=== PATIENT | female | born 1970 | race Caucasian/White ===

== ENCOUNTER 2017-01-16 10:56 | Emergency (ER) | payer OTHER ==
[~2017-01-16] VITALS: Ht 154.9 cm; Wt 78.0 kg
[~2017-01-16 10:56] MED LIST: LASIX 40 MG TAB40 MG PO; OMEPRAZOLE20 MG PO; TESSALON PER100 MG PO; TRAMADOL HYDROC50 MG PO; ZPAK PO
[2017-01-16] MEDS ORDERED: OMEPRAZOLE10 MG PO (11:09)
[2017-01-16 11:34] LABS: HEMATOCRIT 40.1 % (37.0-47.0); HEMOGLOBIN 13.9 g/dl (12.0-16.0); IMMATURE GRANULOCYTES 0.3 % (0.0-1.0); MEAN CELL VOLUME 95.7 fL CALC (80.0-100.0); MEAN CORPUSCULAR HGB 33.2 pG CALC (26.0-32.0); MEAN CORPUSCULAR HGB CONC 34.7 g/L CALC (32.0-36.0); NEUT# 4.22 thou/uL (2.00-7.15); RED BLOOD COUNT 4.19 mill/uL (4.20-5.60); RED CELL DISTRI WIDTH 12.2 % (11.5-15.5)
[2017-01-16 11:53] LABS: ALBUMIN 4.7 g/dL (3.2-5.0); ALKALINE PHOSPHATASE 126 u/l (38-126); ANION GAP 20 (6-22 (CALC)); BILIRUBIN, TOTAL 0.3 mg/dL (0.0-1.4); BUN 8 mg/dL (7-17); BUN/CREATININE RATIO 12 (12-20 (CALC)); CALCIUM 10.4 mg/dL (8.4-10.2); CARBON DIOXIDE 24 mmol/l (22-30); CHLORIDE 105 mmol/l (95-108); CREATININE 0.6 mg/dL (0.5-1.0); ETHYL ALCOHOL 25 mg/dl (0-30); GFR > 60 ML/MIN (>=60 (CALC)); GFR FOR AFR.AMER. > 60 ML/MIN (>=60 (CALC)); GLUCOSE 97 mg/dL (65-105); POTASSIUM 4.3 mmol/l (3.5-5.1); SGOT/AST 56 u/l (14-36); SGPT/ALT 56 u/l (9-52); SODIUM 144 mmol/l (137-146); TOTAL PROTEIN 8.5 g/dL (6.3-8.2)
[2017-01-16 12:05] LABS: MYOGLOBIN 37 ng/mL (0 - 62)
[2017-01-16] MEDS ORDERED: LOPRESSOR25 M1 PO (13:01)
[2017-01-16] MEDS ORDERED: MEDDOSEPAK PO (13:01)
[2017-01-16] MEDS ORDERED: ZPAK PO (13:01)
[2017-01-16 13:58] VITALS: BP 148/74
== END 2017-01-16 14:00 | disposition home or self-care (01) | DRG 203 ==
LOC: ED 10:56
PROVIDERS: Emergency Medicine
DX: J40 Bronchitis, not specified as acute or chronic (principal); I10 Essential (primary) hypertension; F17.210 Nicotine dependence, cigarettes, uncomplicated; F10.10 Alcohol abuse, uncomplicated

== ENCOUNTER 2018-10-27 11:32 | Emergency (ER) | payer OTHER ==
[~2018-10-27] VITALS: Ht 154.9 cm; Wt 79.1 kg
[~2018-10-27 11:32] MED LIST changes: +LOPRESSOR25 M1 PO; +MEDDOSEPAK PO; +OMEPRAZOLE10 MG PO
[2018-10-27 11:48] VITALS: BP 121/78
[2018-10-27] MEDS ORDERED: LIPITOR20 M1 PO (11:54)
[2018-10-27] MEDS ORDERED: LISINOP/HCTZ1 TA2 PO (11:55)
[2018-10-27] MEDS ORDERED: PAXIL40 MG PO (11:55)
== END 2018-10-27 12:20 | disposition home or self-care (01) | DRG 605 ==
LOC: ED 11:32
DX: S80.01XA Contusion of right knee, initial encounter (principal); I10 Essential (primary) hypertension; E78.5 Hyperlipidemia, unspecified; F17.200 Nicotine dependence, unspecified, uncomplicated; W01.0XXA Fall on same level from slipping, tripping and stumbling without subsequent striking against object, initial encounter

== ENCOUNTER 2019-12-31 | Emergency (ER) | payer OTHER ==
[~2019-12-31] MED LIST changes: +LIPITOR20 M1 PO; +LISINOP/HCTZ1 TA2 PO; +PAXIL40 MG PO
[2019-12-31] MEDS ORDERED: LOSARTAN POTASS50 MG PO (11:57)
[2019-12-31] MEDS ORDERED: BUSPIRONE5 MG PO (11:57)
== END 2019-12-31 15:21 | disposition home or self-care (01) | DRG 556 ==
DX: M79.605 Pain in left leg (principal); I10 Essential (primary) hypertension; F17.210 Nicotine dependence, cigarettes, uncomplicated; Z98.890 Other specified postprocedural states

== ENCOUNTER 2020-11-17 10:30 | Emergency (ER) | payer OTHER ==
[~2020-11-17] VITALS: Ht 157.5 cm; Wt 77.3 kg
[~2020-11-17 10:30] MED LIST changes: +BUSPIRONE5 MG PO; +LOSARTAN POTASS50 MG PO
[2020-11-17 11:30] LABS: HEMATOCRIT 38.4 % (37.0-47.0); HEMOGLOBIN 13.3 g/dl (12.0-16.0); IMMATURE GRANULOCYTES 0.5 % (0.0-5.0); MEAN CELL VOLUME 98.5 fL CALC (80.0-100.0); MEAN CORPUSCULAR HGB 34.1 pG CALC (26.0-32.0); MEAN CORPUSCULAR HGB CONC 34.6 g/dL CAL (32.0-36.0); NEUT# 5.14 thou/uL (2.00-7.15); RED BLOOD COUNT 3.9 mill/uL (4.20-5.60); RED CELL DISTRI WIDTH 12.8 % (11.5-15.5)
[2020-11-17 11:44] LABS: ALBUMIN 4.9 g/dL (3.2-5.0); ALKALINE PHOSPHATASE 100 u/l (38-126); BUN 9 mg/dL (7-17); BUN/CREATININE RATIO 13 (12-20 (CALC)); CARBON DIOXIDE 27 mmol/l (22-30); CHLORIDE 99 mmol/l (95-108); CREATININE 0.7 mg/dL (0.5-1.0); GFR > 60 ML/MIN (>=60 (CALC)); GFR FOR AFR.AMER. > 60 ML/MIN (>=60 (CALC)); LIPASE 74 u/l (23-300); POTASSIUM 3.7 mmol/l (3.5-5.1); SGOT/AST 41 u/l (14-36); TOTAL PROTEIN 8.5 g/dL (6.3-8.2)
[2020-11-17 11:48] LABS: ANION GAP 12 (6-22 (CALC)); BILIRUBIN, TOTAL 0.6 mg/dL (0.0-1.4); SODIUM 134 mmol/l (137-146)
[2020-11-17 13:00] VITALS: BP 156/76
== END 2020-11-17 13:00 | disposition home or self-care (01) | DRG 563 ==
LOC: ED 10:30
PROVIDERS: Family Medicine
DX: S46.912A Strain of unspecified muscle, fascia and tendon at shoulder and upper arm level, left arm, initial encounter (principal); S16.1XXA Strain of muscle, fascia and tendon at neck level, initial encounter; I10 Essential (primary) hypertension; F17.200 Nicotine dependence, unspecified, uncomplicated; V43.52XA Car driver injured in collision with other type car in traffic accident, initial encounter

== ENCOUNTER 2022-05-28 16:01 | Emergency (ER) | payer SELFPAY ==
[~2022-05-28] VITALS: Ht 157.5 cm; Wt 68.0 kg
[2022-05-28 17:52] LABS: HEMATOCRIT 41.6 % (37.0-47.0); HEMOGLOBIN 14.2 g/dl (12.0-16.0); IMMATURE GRANULOCYTES 0.1 % (0.0-5.0); MEAN CORPUSCULAR HGB 31.1 pG CALC (26.0-32.0); MEAN CORPUSCULAR HGB CONC 34.1 g/dL CAL (32.0-36.0); NEUT# 7.47 thou/uL (2.00-7.15); RED BLOOD COUNT 4.57 mill/uL (4.20-5.60); RED CELL DISTRI WIDTH 11.6 % (11.5-15.5)
[2022-05-28 18:23] LABS: ALBUMIN 5.2 g/dL (3.2-5.0); ALKALINE PHOSPHATASE 89 u/l (38-126); ANION GAP 19 (6-22 (CALC)); BILIRUBIN, TOTAL 0.4 mg/dL (0.0-1.4); BUN 11 mg/dL (7-17); BUN/CREATININE RATIO 14 (12-20 (CALC)); CARBON DIOXIDE 18 mmol/l (22-30); CHLORIDE 106 mmol/l (95-108); CREATININE 0.8 mg/dL (0.5-1.0); GFR FOR AFR.AMER. > 60 ML/MIN (>=60 (CALC)); GFR OTHER RACES > 60 ML/MIN (>=60 (CALC)); LIPASE 77 u/l (23-300); POTASSIUM 3.8 mmol/l (3.5-5.1); SGOT/AST 42 u/l (14-36); SODIUM 139 mmol/l (137-146); TOTAL PROTEIN 8.2 g/dL (6.3-8.2)
[2022-05-28] MEDS ORDERED: CIPROFLOXACN500 MG PO (20:23)
[2022-05-28] MEDS ORDERED: METRONIDAZOLE500 MG PO (20:23)
[2022-05-28] MEDS ORDERED: ONDANSETRON4 MG PO (20:23)
[2022-05-28 20:42] VITALS: BP 158/66
[2022-05-29] MEDS ORDERED: OMNICEF300 M1 PO (11:11)
== END 2022-05-28 20:45 | disposition home or self-care (01) | DRG 392 ==
LOC: ED 16:01
PROVIDERS: Nurse Practitioner
DX: K52.9 Noninfective gastroenteritis and colitis, unspecified (principal); I10 Essential (primary) hypertension; F17.200 Nicotine dependence, unspecified, uncomplicated
CPT/HCPCS: Q9967

== ENCOUNTER 2022-07-01 07:21 | Day surgery (SDC) | payer SELFPAY ==
[~2022-07-01] VITALS: Ht 157.5 cm; Wt 65.8 kg
[~2022-07-01 07:21] MED LIST changes: +CBD GUMMY PO; +CIPROFLOXACN500 MG PO; +METRONIDAZOLE500 MG PO; +OMNICEF300 M1 PO; +ONDANSETRON4 MG PO; +PROAIR HFA IN; +PROVENTIL0.083 % IN
[2022-07-01 10:07] VITALS: BP 115/81
== END 2022-07-01 09:52 | disposition home or self-care (01) | DRG 387 ==
LOC: ENDO 07:21 → ORM 08:45 → ENDO 08:45
PROVIDERS: ATTEND Surgery
PROC: 0DBB8ZX Excision of Ileum, Via Natural or Artificial Opening Endoscopic, Diagnostic (ICD-10-PCS; principal; 2022-07-01)
PROC: 0DBE8ZX Excision of Large Intestine, Via Natural or Artificial Opening Endoscopic, Diagnostic (ICD-10-PCS; 2022-07-01)
PROC: 0DBN8ZX Excision of Sigmoid Colon, Via Natural or Artificial Opening Endoscopic, Diagnostic (ICD-10-PCS; 2022-07-01)
PROC: 0DBP8ZX Excision of Rectum, Via Natural or Artificial Opening Endoscopic, Diagnostic (ICD-10-PCS; 2022-07-01)
PROC: 0DB98ZX Excision of Duodenum, Via Natural or Artificial Opening Endoscopic, Diagnostic (ICD-10-PCS; 2022-07-01)
PROC: 0DB78ZX Excision of Stomach, Pylorus, Via Natural or Artificial Opening Endoscopic, Diagnostic (ICD-10-PCS; 2022-07-01)
DX: K50.10 Crohn's disease of large intestine without complications (principal); K63.5 Polyp of colon; D12.8 Benign neoplasm of rectum; K64.8 Other hemorrhoids; K29.70 Gastritis, unspecified, without bleeding; K29.80 Duodenitis without bleeding

== ENCOUNTER 2022-12-29 13:18 | Observation (INO) | payer OTHER ==
[2022-12-29] VITALS (16 sets, daily range): BP systolic 109–154; BP diastolic 63–90
[~2022-12-29] VITALS: Ht 157.5 cm; Wt 61.6 kg
--- NOTE | 2022-12-29 13:20 | NUR ---
PT ARRIVED TO ED AMBULATOY TX TO WC. ALERT AND ORIENTED X3 AT BED SIDE. REPORT ONSET OF CHEST PAIN 15 MIN AGO. 10/10 PAIN. NO REPOTS OF RADIATING PAIN. REPORTS SWEATING, BUT NO OTHER SYMPTOMS. EKG, IV STARTED, LABS DRAWN. WILL CONTINUE TO MONITOR.
--- NOTE | 2022-12-29 14:20 | NUR ---
PT SITTING UP IN BED AT BEDSIDE. NO COMPLAINTS/DISTRESS. WILL CONTINUE TO MONITOR.
[2022-12-29 14:50] LABS: BASO% 0.3 % (0-3); EOS% 1.7 % (0-8); HEMATOCRIT 37.4 % (37.0-47.0); HEMOGLOBIN 12.6 g/dl (12.0-16.0); IMMATURE GRANULOCYTES 0.1 % (0.0-5.0); LYMPH% 26.5 % (15-41); MEAN CELL VOLUME 91.4 fL CALC (80.0-100.0); MEAN CORPUSCULAR HGB 30.8 pG CALC (26.0-32.0); MEAN CORPUSCULAR HGB CONC 33.7 g/dL CAL (32.0-36.0); MONO% 5.4 % (2-13); NEUT# 7.41 thou/uL (2.00-7.15); RED BLOOD COUNT 4.09 mill/uL (4.20-5.60); RED CELL DISTRI WIDTH 12.4 % (11.5-15.5)
[2022-12-29 15:01] LABS: ALBUMIN 4.4 g/dL (3.2-5.0); ALKALINE PHOSPHATASE 85 u/l (38-126); BUN 14 mg/dL (7-17); BUN/CREATININE RATIO 18 (12-20 (CALC)); CHLORIDE 107 mmol/l (95-108); CREATININE 0.8 mg/dL (0.5-1.0); GFR FOR AFR.AMER. > 60 ML/MIN (>=60 (CALC)); GFR OTHER RACES > 60 ML/MIN (>=60 (CALC)); POTASSIUM 3.9 mmol/l (3.5-5.1); SGOT/AST 31 u/l (14-36); SODIUM 139 mmol/l (137-146); TOTAL PROTEIN 7.3 g/dL (6.3-8.2)
[2022-12-29 15:04] LABS: ANION GAP 11 (6-22 (CALC)); CARBON DIOXIDE 25 mmol/l (22-30)
[2022-12-29 15:12] LABS: URINE BILIRUBIN - DIPSTICK NEGATIVE (NEGATIVE); URINE BLOOD DIPSTICK NEGATIVE (NEGATIVE); URINE COLOR YELLOW; URINE GLUCOSE - DIPSTICK NEGATIVE (NEGATIVE); URINE KETONE NEGATIVE (NEGATIVE); URINE LEUK ESTERASE TRACE (NEGATIVE); URINE PROTEIN - DIPSTICK NEGATIVE (NEG-TRACE); URINE SPECIFIC GRAVITY <=1.005; URINE UROBILINOGEN - DIPSTICK 0.2 E.U./dL (0.2)
[2022-12-29 15:17] LABS: URINE NITRITE - DIPSTICK NEGATIVE (Negative)
--- NOTE | 2022-12-29 15:19 | NUR ---
PT SITTING IN BED, LEFT BEDSIDE. URINE OBTAINED. NO COMPLAINTS. WILL CONT TO MONITOR.
--- NOTE | 2022-12-29 16:34 | NUR ---
REPORT GIVEN TO MED SURG NURSE, PT UNDERSTANDS CARE PLAN, AT BEDSIDE. PT TRANSFERRED TO ,ED SURG RM [id number]
--- NOTE | 2022-12-29 16:40 | NUR ---
RECEIVED REPORT FROM NURSE RN IN ER.PT TRANSPORTED TO UNIT VIA W/C [id number].PT TRANSFERRED SELF TO BED.ALERT AND ORIENTED X3.ABLE TO MAKE NEEDS KNOWN.NO C/O ANY PAIN.PT ORIENTATED TO ROOM AND CALL LIGHT.22G IV NOT INFUSING ANY FLUIDS.NO CONCERNS AT THIS TIME.
--- NOTE | 2022-12-29 20:02 | NUR ---
PATIENT SITTING UP IN RECLINER. ALERT AND ABLE TO MAKE NEEDS KNOWN. AMBULATES WITHOUT ASSISTANCE. C/O N0T HAVING HER NICOTINE PATCH YET. WILL CALL PHARMACY AND SEE THE STATUS OF THE ORDER THAT WAS FAXED BY DAY SHIFT. ASSESSMENT COMPLETE. NO DISTRESS. NO COMPLAINTS OF PAIN. CALL LIGHT REMAINS IN REACH.
[2022-12-30 00:04] VITALS: BP 108/60
--- NOTE | 2022-12-30 00:30 | NUR ---
PATIENT RESTING IN BED. NO COMPLAINTS VOICED AT THIS TIME. BED REMAINS IN LOW POSITION. CALL ALVAREZ AND BELONGINGS IN REACH.
--- NOTE | 2022-12-30 03:20 | NUR ---
PATIENT RESTING IN ROOM. NO DISTRESS NOTED. NO COMPLAINTS OF CHEST PAIN. REQUESTED A COFFEE. PROVIDED BY ELIGIBILITY TECHNICIAN. CALL LIGHT AND BELONGINGS REMAIN IN REACH.
[2022-12-30 03:22] VITALS: BP 121/65
[2022-12-30 05:41] LABS: CHOLESTEROL HDL RATIO 4.3 (<4.4 (CALC)); MAGNESIUM 1.9 mg/dL (1.6-2.3)
[2022-12-30 07:01] VITALS: BP 134/76
--- NOTE | 2022-12-30 08:00 | NUR ---
PT SITTING UP IN CHAIR, ALERT AND ORIENTED X3. PT HAS NO C/O PAIN AT THIS TIME. PT HAS TELE ON WITH ALL LEADS ATTACHED. IV SITE TO RFA CLEAN AND INTACT. PT AMBULATING WELL TO BATHROOM FOR TOILETING NEEDS. PT HAS CALL LIGHT WITHIN REACH AND SAFETY MEASURES IN PLACE.
[2022-12-30] MEDS ORDERED: ASPIRIN ADULT L81 M2 PO (09:56)
--- NOTE | 2022-12-30 10:52 | NUR ---
Discharge instructions given. Patient verbalizes understanding of same. Discharged in stable condition via Ambulatory to Home with spouse. All belongings sent with pt.
== END 2022-12-30 10:50 | disposition home or self-care (01) | DRG 313 ==
LOC: ED 13:18 → ED-I 15:30 → ED 15:55 → MS2 15:56
PROVIDERS: Nurse Practitioner; ADMIT Internal Medicine; ATTEND Internal Medicine
DX: R07.9 Chest pain, unspecified (principal); I10 Essential (primary) hypertension; E78.5 Hyperlipidemia, unspecified
CPT/HCPCS: J1650

== ENCOUNTER 2024-04-29 08:42 | Inpatient (IN) | payer SELFPAY ==
[2024-04-29] VITALS (18 sets, daily range): BP systolic 125–172; BP diastolic 59–106
[~2024-04-29] VITALS: Ht 154.9 cm; Wt 64.9 kg
[~2024-04-29 08:42] MED LIST changes: +ASPIRIN ADULT L81 M2 PO; +KEFLEX500 MG PO; +MECLIZINE25 MG PO; +OMNICEF300 MG PO; +ZITHROMAX250 MG PO; +ZOFRAN4 MG/TAB PO
--- NOTE | 2024-04-29 08:42 | NUR ---
PT ARRIVES WITH STROKE LIKE SYMPTOMS, UPON ASSESSMENT STROKE ALERT CALLED AND PT WAS IMMEDIATELY TAKEN IMMEDIATELY TO CT, BEDSIDE. 0855- NEUROLOGY ON TELENEURO AND ASSESMENT PERFORMED WITH HIM. PT HAVING MODERATE APHASIA, PT ABLE TO IDENTIFY PICTURES, STATE WORDS ON ASSESSMENTETC. PT VISIBLY UPSET WITH LABILE EMOTIONS. NO ISSUES WITH SENSATION, PARALYSIS, WEAKNESS. T
[2024-04-29 09:15] LABS: BASO% 0.5 % (0-3); EOS% 2.7 % (0-8); IMMATURE GRANULOCYTES 0.1 % (0.0-5.0); LYMPH% 40.8 % (15-41); MEAN CORPUSCULAR HGB 31.5 pG CALC (26.0-32.0); MEAN CORPUSCULAR HGB CONC 33.7 g/dL CAL (32.0-36.0); MONO% 9.3 % (2-13); NEUT# 3.99 thou/uL (2.00-7.15); NEUT% 46.6 % (42-76); RED BLOOD COUNT 4.26 mill/uL (4.20-5.60); RED CELL DISTRI WIDTH 12.1 % (11.5-15.5)
[2024-04-29 09:16] LABS: HEMATOCRIT 39.8 % (37.0-47.0); HEMOGLOBIN 13.4 g/dl (12.0-16.0); MEAN CELL VOLUME 93.4 fL CALC (80.0-100.0)
[2024-04-29] MEDS ORDERED: ASPIRIN 81 MG/TAB PO ONE (09:20)
[2024-04-29] MEDS ORDERED: CLOPIDOGREL BISULFATE 75 MG/TAB TAB PO ONE (09:20)
[2024-04-29 09:30] LABS: PROTHROMBIN TIME 9.3 SECONDS (9.0-12.5)
[2024-04-29 09:36] LABS: ALBUMIN 4.9 g/dL (3.2-5.0); ALKALINE PHOSPHATASE 80 u/l (38-126); BILIRUBIN, TOTAL 0.4 mg/dL (0.02-1.3); BUN 12 mg/dL (7-17); BUN/CREATININE RATIO 15 (12-20 (CALC)); CALCULATED LDLCHOLESTEROL 145 mg/dL (62-129 (CALC)); CARBON DIOXIDE 22 mmol/l (22-30); CREATININE 0.8 mg/dL (0.5-1.0); ESTIMATED GFR 87 ML/MIN (>=90 (CALC)); HDL CHOLESTEROL 80 mg/dL (39.0-59.0); POTASSIUM 3.9 mmol/l (3.5-5.1); SGOT/AST 34 u/l (14-36); SODIUM 140 mmol/l (137-146); TOTAL CHOLESTEROL 245 mg/dl (0-199); TOTAL PROTEIN 8.1 g/dL (6.3-8.2); TOTAL TRIGLYCERIDES 97 mg/dl (0-149); VLDL CHOLESTROL 19 mg/dl (2-49 (CALC))
[2024-04-29 09:37] LABS: ANION GAP 11 (6-22 (CALC)); CHLORIDE 111 mmol/l (95-108)
--- NOTE | 2024-04-29 09:50 | NUR ---
PT BEGAN TO EXHIBIT SEVERE WORD SALAD AND RIGHT SIDED FACIAL DROOP, SECOND TELE NEURO CONSULT DUE TO THIS NEW FINDING, ASSESMENT COMPLETED BEDSIDE WITH NEUROLOGIST. PT UNABLE TO MAKE ANY COMPLETE SENTENCES, FOLLOW SOME COMMANDS AND HAS SEVERE WORD SALAD JUST SAYING RANDOM WORDS. PT CAN NOT IDENTIFY OBJECTS ON STROKE BOARD AND CALLED A [facility]ENE[facility] A HOUSE. SEVERE APHASIA AND LABILE EMOTIONS. CARDIAC MONITORING IN PLACE, FAMILY BEDSIDE, AWARE
[2024-04-29] MEDS ORDERED: METOCLOPRAMIDE HCL 10 MG/2 ML SDV IV ONE (10:10)
[2024-04-29] MEDS ORDERED: MAGNESIUM SULFATE 50% 1 GM/2 ML IV ONE (10:10)
[2024-04-29] MEDS ORDERED: MAGNESIUM SULFATE HEPTAHYDRATE 50 ML IV ONE (10:45)
--- NOTE | 2024-04-29 10:50 | NUR ---
PT IS RESTING IN BED, STATES SHE IS FEELING " ALOT BETTER". NIH IS BACK DOWN DURING ASSESSMENT AND PT IS MAKING COMPLETE SENTENCES AND FOLLOWING COMMANDS
[2024-04-29 11:07] LABS: URINE BILIRUBIN - DIPSTICK Negative (NEGATIVE); URINE BLOOD DIPSTICK Negative (NEGATIVE); URINE GLUCOSE - DIPSTICK Negative (NEGATIVE); URINE KETONE Negative (NEGATIVE); URINE LEUK ESTERASE Negative (NEGATIVE); URINE NITRITE - DIPSTICK Negative (Negative); URINE PROTEIN - DIPSTICK Negative (NEG-TRACE); URINE UROBILINOGEN - DIPSTICK 0.2 E.U./dL (0.2)
[2024-04-29 11:08] LABS: URINE COLOR Yellow
--- NOTE | 2024-04-29 11:50 | NUR ---
PT RESTING PEACEFULLY WITH AT BEDSIDE, NO FURTHER COMPLAINTS OR DISTRESS
[2024-04-29] MEDS ORDERED: DEXTROSE 250 ML IV PRN (11:55)
[2024-04-29] MEDS ORDERED: MAGNESIUM HYDROXIDE 30 ML UDC PO PRN (11:55)
[2024-04-29] MEDS ORDERED: SODIUM CHLORIDE 0.9% 1,000 ML IV PRN (11:55)
[2024-04-29] MEDS ORDERED: KETOROLAC TROMETHAMINE 15 MG/ML SDV IV PRN (12:10)
[2024-04-29] MEDS ORDERED: DiphenhydrAMINE HCL 50 MG/ML SDV IV PRN (12:20)
[2024-04-29] MEDS ORDERED: hydrALAZINE HCL 20 MG/ML VIAL(1 ML) IV PRN (12:20)
--- NOTE | 2024-04-29 12:50 | NUR ---
PT WAS UPDATED ON PLAN OF CARE AND IS AWAITING RESULTS
--- NOTE | 2024-04-29 13:50 | NUR ---
SBAR REPORT GIVEN TO MANAGER GENERAL, PT HAS ALL BELONGINGS WITH HER, TRANSPORTING ON MONITOR, PT IS GOING TO MRI AND THEN SHE WILL BE TRANSFERING TO ICU
--- NOTE | 2024-04-29 14:50 | NUR ---
female pt received to ICU via bed accompanied by spouse and Layton Scott RN; ambulatory to bed with steady gait; admission assessment completed at this time; pt alert; word salad/ expressive aphasia noted; able to answer yes and no questions; denies pain; no n/v noted; resp even and unlabored; lungs clear; skin color wnl; ra; hr reg; strong pulses; no edema noted; sr on monitor; abd soft with bs present; no bm noted; pt admits to voiding without pain or burning; no urine to inspect at this time; #20 lac saline locked; no redness or edema noted at site; NIH completed; pt noted with right minor facial droop, right drift to arm and leg; plan of care/ meds explained; call light within reach; will continue to monitor
--- NOTE | 2024-04-29 15:48 | NUR ---
critical received from Nisa Sung; will notify
--- NOTE | 2024-04-29 15:53 | NUR ---
Dr Fuller notified of MRI results; no orders received
--- NOTE | 2024-04-29 17:34 | NUR ---
PATIENT ASSISTED TO BATHROOM. 500 mL OF CLEAR, YELLOW URINE NOTED. DENIES CONCERNS AT THIS TIME. VITAL SIGNS STABLE. WILL CONTINUE TO MONITOR.
--- NOTE | 2024-04-29 20:00 | NUR ---
ASSESSMENT COMPLETED. LUNG CORTES CLEAR. NIH SCORE OF 7 GIVEN FOR APHASIA AND WEAKNESS/DRIFT ON R SIDE. NS @ 80 ML/HR. PT AMBULATORY. PT HAS NO COMPLAINTS. AT BEDSIDE. V/S STABLE. CALL LIGHT IN REACH
[2024-04-29] MEDS ORDERED: ENOXAPARIN SODIUM 40 MG/0.4 ML SYR SC SCH (21:00)
[2024-04-29] MEDS ORDERED: ATORVASTATIN CALCIUM 40 MG/TAB PO SCH (21:00)
--- NOTE | 2024-04-29 22:10 | NUR ---
PT RESTING COMFORTABLY. NO CHANGES NOTED. V/S STABLE. CALL LIGHT IN REACH
--- NOTE | 2024-04-29 23:59 | NUR ---
PT HAS NO COMPLAINTS AT THIS TIME. NIH REMAINS A 7. V/S STABLE. CALL LIGHT IN REACH
[2024-04-30] VITALS (19 sets, daily range): BP systolic 130–189; BP diastolic 60–110
--- NOTE | 2024-04-30 02:27 | NUR ---
NO CHANGES NOTED. PT RESTING COMFORTABLY, HAS NO COMPLAINTS. NS @ 80 ML/HR. V/S STABLE. CALL LIGHT IN REACH
--- NOTE | 2024-04-30 04:00 | NUR ---
PT RESTING COMFRTABLY, NIH SCORE REMAINS A 7, APHASIA AND R SIDE WEAKNESS/DRIT. HAS NO COMPLAINTS. V/S STABLE, CALL LIGHT IN REACH
[2024-04-30 05:06] LABS: BASO% 0.4 % (0-3); EOS% 1.4 % (0-8); HEMATOCRIT 37.2 % (37.0-47.0); HEMOGLOBIN 12.9 g/dl (12.0-16.0); IMMATURE GRANULOCYTES 0.1 % (0.0-5.0); LYMPH% 28.1 % (15-41); MEAN CORPUSCULAR HGB 32.3 pG CALC (26.0-32.0); MEAN CORPUSCULAR HGB CONC 34.7 g/dL CAL (32.0-36.0); MONO% 7.6 % (2-13); NEUT# 5.88 thou/uL (2.00-7.15); NEUT% 62.4 % (42-76); RED CELL DISTRI WIDTH 12.1 % (11.5-15.5)
[2024-04-30 05:24] LABS: ALBUMIN 4.2 g/dL (3.2-5.0); BILIRUBIN, TOTAL 0.4 mg/dL (0.02-1.3); CHOLESTEROL HDL RATIO 3.3 (<4.4 (CALC)); CREATININE 0.7 mg/dL (0.5-1.0); MAGNESIUM 1.9 mg/dL (1.6-2.3); TOTAL PROTEIN 6.7 g/dL (6.3-8.2)
[2024-04-30] MEDS ORDERED: CLARIFY DOSE PO PRN (06:15)
--- NOTE | 2024-04-30 07:00 | NUR ---
SBAR REPORT GIVEN BY MAINTENANCE ADVISOR RN, PT SLEEPING PEACEFULLY IN BED, CARDIAC MONITORING IN PLACE, IV PATENT AND INFUSING NS 80ML/HR. WILL CONTINUE TO MONITOR FOR SAFETY
[2024-04-30] MEDS ORDERED: ACETAMINOPHEN 325 MG/TAB PO PRN (08:55)
--- NOTE | 2024-04-30 08:59 | NUR ---
PT IS SITTING UP IN BED WITH . DR CLAY BEDSIDE EDUCATING PT ON DIAGNOSIS AND PLAN OF CARE. PT BEING MONITORED FOR SAFETY CONTINUOUSLY.
[2024-04-30] MEDS ORDERED: CLOPIDOGREL BISULFATE 75 MG/TAB TAB PO SCH (09:00)
[2024-04-30] MEDS ORDERED: ASPIRIN 81 MG/TAB PO SCH (09:00)
[2024-04-30] MEDS ORDERED: SERTRALINE HCL 25 MG/TAB PO SCH (11:00)
--- NOTE | 2024-04-30 11:00 | NUR ---
pt is sitting in bed, had a neurology visit via teleneuro this am. pt is now trying to communicate better with a communication board. cardiac monitoring in place and speech therapy already came and evaluated pt today. pt at baseline as to when he came into the ER
[2024-04-30] MEDS ORDERED: DOXYCYCLINE100 MG PO (11:21)
--- NOTE | 2024-04-30 13:00 | NUR ---
PT IS RESTING IN BED WITH BEDSIDE. MONITOR IN PLACE AND RN 1 TO 1 RATIO. WHEELS LOCKED AND BED LOW WITH CALL LIGHT IN REACH
--- NOTE | 2024-04-30 15:00 | NUR ---
pt was take down on monitor to echo, rn accompanied and waited with pt during procedure, no distress or issues noted
--- NOTE | 2024-04-30 17:00 | NUR ---
pt is resting in bed with no complaints at this time
--- NOTE | 2024-04-30 20:14 | NUR ---
RECEIVED REPORT FROM NURSE KACY, PATIENT ALERT ORIENTED RESPONDS NO NAME, UNABLE TO ARTICULATE, APHASIA NOTED, MINORRT FACIAL DROOP NOTED IV ON LAC G 20 PATENT FLUSHES WELL, PATIENT SPOUSE IN ROOM, CONNECTED TO HAND OR MACHINE PASTER, LUNF SOUNDS CLEAR. LBM 8/12, PATIENT ON ROOM AIR NOT IN DISTRESS, HEAD ELEVATED, CALL LIGHT WITHIN REACHED.
--- NOTE | 2024-04-30 21:40 | NUR ---
PATINET RESTING IN BED, NOT IN DISTRESS, REMAINS ON ROOM AIR, BREATHING UNLABORED CALL LIGHT IN REACHED.
--- NOTE | 2024-04-30 23:55 | NUR ---
PATIENT RESTING IN BED, ABLE TO FOLLOW COMMANDS, NIH 5, BREATHING UNLABORED CALL LIGHT IN REACHED.
[2024-05-01] VITALS (38 sets, daily range): BP systolic 145–216; BP diastolic 77–151
--- NOTE | 2024-05-01 02:00 | NUR ---
PATINET AWAKE, BM X 1 LOOSE, PATINET BACK IN BED, BREATHING UNLABORED CALL LIGHT IN REACHED.
--- NOTE | 2024-05-01 02:44 | NUR ---
SULEMA VOMITTED X 1 NEW GOWN PROVIDED, LINEN CHANGED.
--- NOTE | 2024-05-01 04:25 | NUR ---
PATINET RESTING IN BED, EYES CLOSED, BREATHING EVEN UNLABORED CALL LIGHT IN REACHED.
--- NOTE | 2024-05-01 05:27 | NUR ---
PATIENT ASSISTED TO THE CHAIR, RESTING IN BED, CALL LIGHT IN REACHED.
[2024-05-01 05:52] LABS: BASO% 0.4 % (0-3); EOS% 0.4 % (0-8); HEMATOCRIT 38.6 % (37.0-47.0); HEMOGLOBIN 13.5 g/dl (12.0-16.0); IMMATURE GRANULOCYTES 0.1 % (0.0-5.0); LYMPH% 16.7 % (15-41); MEAN CELL VOLUME 91.5 fL CALC (80.0-100.0); MONO% 5.2 % (2-13); NEUT# 8.11 thou/uL (2.00-7.15); NEUT% 77.2 % (42-76); RED BLOOD COUNT 4.22 mill/uL (4.20-5.60); RED CELL DISTRI WIDTH 11.9 % (11.5-15.5)
--- NOTE | 2024-05-01 06:08 | NUR ---
PATIENT RESTING IN CHAIR, BREATHING UNLABORED CALL LIGHT IN REACHED.
[2024-05-01 06:29] LABS: ALBUMIN 4.8 g/dL (3.2-5.0); CREATININE 0.7 mg/dL (0.5-1.0); MAGNESIUM 1.7 mg/dL (1.6-2.3); TOTAL PROTEIN 7.7 g/dL (6.3-8.2)
[2024-05-01 06:31] LABS: BILIRUBIN, TOTAL 0.6 mg/dL (0.02-1.3)
--- NOTE | 2024-05-01 07:10 | NUR ---
DR. THAO IN TO SEE PATIENT.
[2024-05-01] MEDS ORDERED: DOXYCYCLINE HYCLATE 100 MG in SODIUM CHLORIDE 0.9% 100 ML IV SCH (08:00)
--- NOTE | 2024-05-01 08:00 | NUR ---
PATIENT ASSISTED UP TO CHAIR TO EAT BREAKFAST. NO ACUTE DISTRESS NOTED. PATIENT IS AMBULATORY WITH STEADY GAIT. ASSESSMENT COMPLETED (SEE INTERVENTIONS). NIH COMPLETED (SEE INTERVENTIONS).
--- NOTE | 2024-05-01 08:12 | NUR ---
PATIENT SITTING UP IN CHAIR WITH SPOUSE AT BEDSIDE HAVING BREAKFAST.
[2024-05-01] MEDS ORDERED: amLODIPine BESYLATE 5 MG/TAB PO SCH ×2 (09:00→21:25)
--- NOTE | 2024-05-01 09:53 | NUR ---
TREATMENT SESSION ATTEMPTED AT 0910 ON 05/01/24. PT WITH FATIGUE. CLAM SHUCKING MACHINE TENDER TO ATTEMPT TX SESSION AT 1300.
--- NOTE | 2024-05-01 10:15 | NUR ---
This RN went into the patients room with neuro on the Ancera machine and found patient sitting on the side of bed, she had vomited on the floor, patient told neurologist that she had a headache. Patient was very anxious and crying out at this time. Neuro ordered a STAT CT scan of the head.
--- NOTE | 2024-05-01 12:07 | NUR ---
PATIENT NOTED VOMITING AT THIS TIME. ORDER FOR ZOFRAN, FLU AND COVID TEST RECEIVED. SHE WAS ALSO GIVEN SOME GATORADE AT THIS TIME.
[2024-05-01] MEDS ORDERED: ONDANSETRON HCl 4 MG/2 ML SDV IV PRN (12:25)
--- NOTE | 2024-05-01 14:13 | NUR ---
ST ATTEMPTED VISIT AT 1403. PT FATIGUED AND WITH EMESIS. SAP ABAP PROGRAMMER WILL ATTEMPT TX TOMORROW PENDING HEALTH STATUS.
--- NOTE | 2024-05-01 15:37 | NUR ---
FAMILY/ FRIEND NOTED AT BEDSIDE. PATIENT NOTED LYING IN BED RELAXING WITH NO ACUTE DISTRESS NOTED. SISTER IN LAW STATED PATIENT PULLED OUT IV. FAMILY AT BEDSIDE CONSTANTLY UNHOOKING PATIENT TO GO TO BATHROOM. WHEN ARRIVING IN ROOM TO PLACE PATIENT BACK ON MONITOR. VISITOR STATED SHOULD'NT SHE BE ON THE MONITOR OR SOMETHING SHE WAS CURRENTLY BEING HOOKED UP. IT WAS EXPLAINED TO HER THAT SHE WAS BEING CONNECTED BACK TO THE MONITOR AT THAT TIME. FAMILY MEMBER NOTED TAKING PICTURES OF MONITOR. SHE WAS NOTED TAKING PICTURES OF MONITOR. MANAGEMENT MADE AWARE.
[2024-05-01] MEDS ORDERED: LABETALOL HCL 20 MG/ 4 ML CARTRG IV PRN (15:50)
[2024-05-01] MEDS ORDERED: LOSARTAN Potassium 50 MG/TAB PO SCH (16:00)
--- NOTE | 2024-05-01 16:20 | NUR ---
SPOUSE IS BACK TO BEDIDE. PATIENT SITTING ON SIDE OF BED NOW COMPLAINING THAT IV IS HURTING HER. IV FLUSHED, BLOOD RETURN NOTED. IV STILL GOOD, SHE WAS INFORMED THAT IV COULD BE CHANGED IF SHE WISHES ALTHOUGH IV STILL GOOD. SHE STATED SHE WANTS IV CHANGED. #22 PLACED IN LAC.
[2024-05-01] MEDS ORDERED: LABETALOL HCL 100 MG/20 ML VIAL IV PRN (17:15)
--- NOTE | 2024-05-01 18:00 | NUR ---
FAMILY AT BEDSIDE. PATIENT ASSISTED BACK TO BED WITH NO ACUTE DISTRESS NOTED.
--- NOTE | 2024-05-01 19:00 | NUR ---
PATIENT LYING IN BED RESTING COMFORTABLY WITH NO ACUTE DISTRESS NOTED. FAMILY AT BEDSIDE. REPORT GIVEN TO ONCOMING NURSE.
--- NOTE | 2024-05-01 19:30 | NUR ---
awake. neuro status unchanged. aphasia conts. front desk monitor shows sinus rhythm. ivf infusing well. amb x1 assist to br. adonis well. fall precautions cont.
--- NOTE | 2024-05-01 20:00 | NUR ---
pt refused lipitor.
--- NOTE | 2024-05-01 21:20 | NUR ---
dr charles made aware of pt med refusal.
--- NOTE | 2024-05-01 23:25 | NUR ---
bp 216/131. labatelol 10mg ivp given.
[2024-05-02] VITALS (23 sets, daily range): BP systolic 111–218; BP diastolic 70–115
--- NOTE | 2024-05-02 00:05 | NUR ---
bp 195/105.
--- NOTE | 2024-05-02 02:00 | NUR ---
resting quietly. resps even & unlabored. no apparent distress.
--- NOTE | 2024-05-02 04:00 | NUR ---
eyes closed. no distress. bus driver/monitor shows sinus rhythm.
--- NOTE | 2024-05-02 05:00 | NUR ---
amb to br then to chair. pt is tearful this am. bathed self then back to bed.
--- NOTE | 2024-05-02 07:31 | NUR ---
PT VOMITED AT SIDE OF BED. STATED NO MORE NAUSEA. SPOUSE AT BEDSIDE. PT SIPPING ON WATER.
--- NOTE | 2024-05-02 08:30 | NUR ---
ASSESSMENT COMPLETED. PT IS SITTING IN CHAIR BUT DOES NOT WANT TO EAT BREAKFAST. SPOUSE AT BEDSIDE. PT HAS DYSPHAGIA BUT CAN GET SOME WORDS OUT. LUNGS CLEAR; PT IS ON RA. NO COUGH OR SOB NOTED. PT IS SINUS TACH ON MONITOR. BS ACTIVE. PULSES STRONG ALL EXTREMETIES. NO EDEMA. SKIN W/D/I. CALL LIGHT AND BELONGINGS WITHIN REACH. VSS.
--- NOTE | 2024-05-02 09:44 | NUR ---
Contacted nursing, pt with increase BP and was noted vomiting. Treatment held.
--- NOTE | 2024-05-02 10:38 | NUR ---
ARRESTING GEAR OPERATOR AT BEDSIDE. FAMILY AT BEDSIDE. PT SITTING IN CHAIR.
--- NOTE | 2024-05-02 12:30 | NUR ---
NO CHANGES TO PT STATUS. VISITORS AT BEDSIDE. PT SITTING IN CHAIR. CALL LIGHT AND BELONGINGS WITHIN REACH. VSS.
--- NOTE | 2024-05-02 14:00 | NUR ---
PT ASLEEP IN BED. CALL LIGHT IN REACH. VSS.
--- NOTE | 2024-05-02 16:00 | NUR ---
PT SITTING AT EDGE OF BED WITH VISITORS. DENIES ANY NEEDS AT THIS TIME. SPEECH APPEARS IMPROVED SLIGHTLY FROM THIS MORNING. CALL LIGHT IN REACH. VSS.
--- NOTE | 2024-05-02 18:00 | NUR ---
PT LYING IN BED ASLEEP. DINNER TRAY AT BEDSIDE BUT PT DOES NOT WANT TO EAT. FAMILY AT BEDSIDE. CALL LIGHT IN REACH.
--- NOTE | 2024-05-02 18:19 | NUR ---
BP ELEVATED AND NO PRN MEDS AVAILABLE AT THIS TIME. DR. GARCIA NOTIFIED.
--- NOTE | 2024-05-02 18:38 | NUR ---
ORDER RECEIVED FROM DR. GARCIA FOR PO LABETOLOL.
--- NOTE | 2024-05-02 20:10 | NUR ---
awakens easily. no change in neuro status. aphasia conts. child monitor shows sinus rhythm. ivf infusing well. voids per br. fall precautions cont. spoke to pt @ length about meds, activity, lab work, speech therapy. pt nodded head yes.
[2024-05-02] MEDS ORDERED: LABETALOL HCL 100 MG/TAB PO SCH (21:00)
--- NOTE | 2024-05-02 22:00 | NUR ---
eyes closed. no distress. ivf cont.
[2024-05-03] VITALS (26 sets, daily range): BP systolic 89–168; BP diastolic 53–96
--- NOTE | 2024-05-03 00:01 | NUR ---
eyes closed. no distress. lunchroom monitor shows sinus rhythm.
--- NOTE | 2024-05-03 02:00 | NUR ---
resting quietly. resps even & unlabored. nad. rn cardiac cath shows sinus rhythm.
--- NOTE | 2024-05-03 04:00 | NUR ---
eyes closed. no distress. panel monitor shows sinus rhythm
--- NOTE | 2024-05-03 06:00 | NUR ---
office associate shows sinus rhythm. ivf infusing well.
--- NOTE | 2024-05-03 08:15 | NUR ---
patient speech improved from yesterday patient able to form intermittent 3 word sentences. patient able to match shapes and numbers. patient able to describe that a pen is used for writing. patient denies any pain and is able to ambulate from bed to bathroom without difficulty. patient remains with minor drifts to upper and lower right side and has sided facial droop and moderate asphasia.
--- NOTE | 2024-05-03 10:45 | NUR ---
no change in assessment from previous note. patient alert and oriented. denies any pain nihss remains the same. breathing even and unlabored
--- NOTE | 2024-05-03 12:21 | NUR ---
ST TREATMENT ATTEMTP AT 1213. PT WITH FATIGUE. LOBBY ATTENDANT WILL REATTEMPT AT A LATER DATE/TIME.
--- NOTE | 2024-05-03 13:45 | NUR ---
PT TAKEN TO CT BY HOSPITAL BED. PT'S SPOUSE REMAINS AT BEDSIDE.
--- NOTE | 2024-05-03 14:15 | NUR ---
PT REPOSITIONED IN BED. EAR CLEANED AND BAND-AID APPLIED. PT SLEEPY, STILL HAVING DIFFICULTY WITH SPEECH. SPOUSE AT BEDSIDE. PT AND SPOUSE DENY ANY NEEDS AT THIS TIME. PT GIVEN CALL LIGHT, TV ON. VSS.
--- NOTE | 2024-05-03 15:16 | NUR ---
CT RESULTED. DR. GARCIA MADE AWARE. NO NEW ORDERS RECEIVED. PT ASLEEP, STABLE CONDITION. NO CHANGES.
--- NOTE | 2024-05-03 16:10 | NUR ---
PT SITTING UP IN BED. AWAKE. NO OTHER CHANGES TO PT STATUS. SPOUSE REMAINS AT BEDSIDE. CALL LIGHT IN REACH. VSS.
--- NOTE | 2024-05-03 18:10 | NUR ---
ORDERS FROM DR. GARCIA TO DO ORTHOSTATIC BP'S. PT POSITIVE; LYING FLAT 128/79, SITTING 138/79, STANDING 89/56. DR. GARCIA NOTIFIED AND MEDICATIONS ADJUSTED. ORDER RECEIVED TO GIVE 1L BOLUS. PT THEN ASSISTED TO BEDSIDE COMMODE TO VOID. PT'S SPOUSE AT BEDSIDE AND UPDATED ON PT STATUS AND PLAN OF CARE. PT'S HR ELEVATED UP TO 150'S WHEN STANDING, BUT RECOVERS WHEN RESTING.
--- NOTE | 2024-05-03 20:00 | NUR ---
pt assessment complete. pt has severe aphasia and r side weakness. lung kowalski are clear. pt instructed to use bsc. bed alarm is activated. v/s stable. call light and belongings in reach.
--- NOTE | 2024-05-03 22:00 | NUR ---
PT RESTING COMFORTABLY, NO COMPLAINTS. NO CHANGES NOTED. V/S STABLE, CALL LIGHT IN REACH
[2024-05-04] VITALS (30 sets, daily range): BP systolic 103–156; BP diastolic 63–95
--- NOTE | 2024-05-04 00:55 | NUR ---
AT APPROX. 0000, PT BED ALARM SOUNDED. I AND TWO OTHER NURSES PROMPTLY RESPONDED. PRIOR TO ENTERING PT ROOM, A LOUD CRASH WAS HEARD. PT WAS FOUND LYING FLAT ON GROUND TO L SIDE OF BED. RAPID RESPONSE WAS INITIATED FOR QUICK ASSISTANCE. PT WAS ASSISTED BACK TO BED. A THOROUGH ASSESSMENT WAS COMPLETED. NO OBVIOUS INJURIES NOTED, NO CHANGE IN PT BASELINE. V/S STABLE. DR ARIAS WAS NOTIFIED OF INCIDENT. EVENT SUBMITTED TO HEALTHCARE SAFETY ZONE. BED ALARM IS ACTIVATED, SITTER PLACED @ BEDSIDE, NON-SKID FOOTWEAR ON PT.
--- NOTE | 2024-05-04 03:01 | NUR ---
PT IS RESTING, NO COMPLAINTS. NO CHANGES NOTED. PT EDUCATED ON NEERAJ. SITTER @ BEDSIDE. BED ALARM ON. V/S STABLE. CALL LIGHT IN REACH
--- NOTE | 2024-05-04 04:04 | NUR ---
PT ALERT, NO COMPLAINTS. NO CHANGE IN STATUS. NO INJURIES APPARENT FROM FALL. V/S STABLE. LAB @ BEDSIDE, SITTER @ BEDSIDE. CALL LIGHT, BELONGINGS IN REACH. BED ALARM ACTIVATED
[2024-05-04 05:00] LABS: MEAN CELL VOLUME 94.1 fL CALC (80.0-100.0); MEAN CORPUSCULAR HGB 33.2 pG CALC (26.0-32.0); MEAN CORPUSCULAR HGB CONC 35.2 g/dL CAL (32.0-36.0); RED BLOOD COUNT 1.87 mill/uL (4.20-5.60); RED CELL DISTRI WIDTH 12.5 % (11.5-15.5)
--- NOTE | 2024-05-04 05:52 | NUR ---
PT ALERT, NO CHANGES NOTED. SITTER IS @ BEDSIDE. PT IS S-TACH HR 108. DENIES ANY PAIN. BED ALARM ACTIVATED, CALL LIGHT IN REACH
[2024-05-04 06:53] LABS: HEMATOCRIT 17.6 % (37.0-47.0); HEMOGLOBIN 6.2 g/dl (12.0-16.0)
--- NOTE | 2024-05-04 07:00 | NUR ---
CRITICAL HGB OF 6.[address] GARCIA. VERBAL ORDERS RECEIVED TO ORDER 3 UNITS PRBC'S, START PROTONIX GTT, HOLD ASA/PLAVIX, ORDER OCCULT STOOL, AND STAT CT ABDOMEN/PELVIS AND STAT CXR. NEW IV STARTED IN LEFT ARM. PT REMAINS APHASIC AND VERY DROWSY. NO OBVIOUS SIGNS OF BLEEDING, NO BRUISING NOTED. ABDOMEN SLIGHTLY DISTENDED BUT PT DENIES ANY PAIN. RIGHT ARM/LEG COMPLETELY FLACCID, NO MOVEMENT. PT HAS FACIAL DROOP. LUNGS CLEAR; HEART SOUNDS S1S2; NSR/ST ON MONITOR. RIGHT ARM SLIGHTLY SWOLLEN.
[2024-05-04 07:18] LABS: BILIRUBIN, TOTAL 0.2 mg/dL (0.02-1.3); CREATININE 0.8 mg/dL (0.5-1.0); POTASSIUM 3.1 mmol/l (3.5-5.1)
[2024-05-04 07:19] LABS: TOTAL PROTEIN 5.1 g/dL (6.3-8.2)
--- NOTE | 2024-05-04 08:09 | NUR ---
BLOOD TRANSFUSION STARTED. SPOUSE AND PT AWARE OF PLAN OF CARE. CONSENT OBTAINED. DR. GARCIA AT BEDSIDE. ASA AND PLAVIX ON HOLD; BP MEDICATIONS ON HOLD.
[2024-05-04] MEDS ORDERED: POTASSIUM CHLORIDE 20MEQ 100 ML IV SCH (08:30)
--- NOTE | 2024-05-04 08:30 | NUR ---
ORDER RECEIVED FROM DR. GARCIA TO GIVE 20MG LASIX AFTER SECOND UNIT OF BLOOD.
[2024-05-04] MEDS ORDERED: FUROSEMIDE 40 MG/4 ML SDV IV PRN (08:55)
[2024-05-04] MEDS ORDERED: amLODIPine BESYLATE 5 MG/TAB PO SCH (09:00)
--- NOTE | 2024-05-04 09:15 | NUR ---
PHONE CALL FROM DR. GARCIA. CT SCAN SHOWS PT RETAINING URINE. ORDER RECEIVED TO PLACE HALL CATHETER. PT AND SPOUSE AWARE AND AGREEABLE. 16F HALL PLACED AND SECURED. CALL LIGHT IN REACH. VSS.
--- NOTE | 2024-05-04 09:45 | NUR ---
PT TAKEN TO MRI BY HOSPITAL BED.
--- NOTE | 2024-05-04 10:15 | NUR ---
PT BACK FROM MRI. SPOUSE AT BEDSIDE. SPOUSE UPDATED ON POC AND TRANSFER PLANS.
--- NOTE | 2024-05-04 10:25 | NUR ---
ORDER RECEIVED FROM DR. GARCIA TO HAVE CENTRAL LINE PLACED.
--- NOTE | 2024-05-04 11:53 | NUR ---
NO CHANGES TO PT STATUS. FAMILY REMAINS AT BEDSIDE. SECOND UNIT OF BLOOD INFUSING; PT TOLERATING WELL. VSS.
--- NOTE | 2024-05-04 12:17 | NUR ---
NO CHANGES TO PT STATUS. BLOOD INFUSING AND PT TOLERATING WELL. SITTER AT BEDSIDE; BED ALARM ON.
--- NOTE | 2024-05-04 13:30 | NUR ---
DR. ZARATE AT BEDSIDE TO PLACE CENTRAL LINE. PT'S SPOUSE REMAINS AT BEDSIDE FOR PROCEDURE. PT TOLERATED WELL, LINE PLACED WITHOUT COMPLICATION. CXR COMPLETED AND APPROVAL FROM DR. ZARATE TO USE LINE.
[2024-05-04 13:31] LABS: MAGNESIUM 1.8 mg/dL (1.6-2.3)
--- NOTE | 2024-05-04 14:58 | NUR ---
NEXT UNIT OF BLOOD INFUSING. PT'S COLOR APPEARS IMPROVED. PT WAS GIVEN LASIX AFTER SECOND UNIT, ORDERED. FAMILY REMAINS AT BEDSIDE. PT TACHYCARDIC AT THIS TIME.
--- NOTE | 2024-05-04 16:31 | NUR ---
[facility] transfer center called per race and sports book writer for update; awaiting bed
--- NOTE | 2024-05-04 17:00 | NUR ---
PT ASLEEP IN BED. FAMILY AT BEDSIDE. LAST UNIT OF PRBC'S INFUSING.
--- NOTE | 2024-05-04 17:56 | NUR ---
call received from [facility] transfer center [place] pt to transfer to [address] [place] [address] room [id number];
--- NOTE | 2024-05-04 18:30 | NUR ---
PHONE CALL PLACED TO [facility]. PT WILL BE PICKED UP IN APPROXIMATELY 10 MINUTES. CONSENT OBTAINED FROM PT'S SPOUSE AND UPDATED ON PLAN OF CARE AND PLANS FOR EDGE GRINDER MACHINE.
--- NOTE | 2024-05-04 19:00 | NUR ---
PT TAKEN BY STRETCHER WITH [facility]. FAMILY AT BEDSIDE AND ALL BELONGINGS SENT WITH FAMILY. PT IN STABLE CONDITION, SENT ON PROTONIX GTT.
== END 2024-05-04 19:00 | disposition short-term general hospital (02) | DRG 64 ==
LOC: ED 08:42 → ED-I 11:30 → ED 11:39 → ICU 11:40
PROVIDERS: Emergency Medicine; Internal Medicine; ADMIT Student in an Organized Health Care Education/Training Program; ATTEND Student in an Organized Health Care Education/Training Program
PROC: 30233N1 Transfusion of Nonautologous Red Blood Cells into Peripheral Vein, Percutaneous Approach (ICD-10-PCS; principal; 2024-05-04)
PROC: 30233N1 Transfusion of Nonautologous Red Blood Cells into Peripheral Vein, Percutaneous Approach (ICD-10-PCS; 2024-05-04)
PROC: 30233N1 Transfusion of Nonautologous Red Blood Cells into Peripheral Vein, Percutaneous Approach (ICD-10-PCS; 2024-05-04)
PROC: 0T9B70Z Drainage of Bladder with Drainage Device, Via Natural or Artificial Opening (ICD-10-PCS; 2024-05-04)
DX: I63.412 Cerebral infarction due to embolism of left middle cerebral artery (principal); G93.6 Cerebral edema; D62 Acute posthemorrhagic anemia; G81.91 Hemiplegia, unspecified affecting right dominant side; K92.2 Gastrointestinal hemorrhage, unspecified; R47.01 Aphasia; R29.810 Facial weakness; R29.705 NIHSS score 5; R29.715 NIHSS score 15; I95.1 Orthostatic hypotension; I10 Essential (primary) hypertension; E78.5 Hyperlipidemia, unspecified; H66.92 Otitis media, unspecified, left ear; F17.210 Nicotine dependence, cigarettes, uncomplicated; Z79.899 Other long term (current) drug therapy; Z88.6 Allergy status to analgesic agent
CPT/HCPCS: J1650; J2470; J3475; P9016; Q9967